=== PATIENT | female | born 1940 | race Caucasian/White ===

== ENCOUNTER 2018-01-24 14:27 | Outpatient (CLI) | payer MEDICARE, OTHER | END 2018-01-24 14:28 | disposition home or self-care (01) | LOC: BICMAMMO 14:27 | PROVIDERS: ATTEND Internal Medicine Hematology & Oncology | DX: Z12.31 Encounter for screening mammogram for malignant neoplasm of breast (principal); Z85.3 Personal history of malignant neoplasm of breast; Z80.3 Family history of malignant neoplasm of breast | CPT/HCPCS: 77063; 77067 ==

== ENCOUNTER 2018-06-20 09:25 | Outpatient (CLI) | payer MEDICARE, OTHER ==
--- NOTE | 2018-06-20 10:59 | BD ---
BONE DENSITOMETRY USING DEXA: Date: 06/20/18 HISTORY: Postmenopausal screening for osteoporosis. FINDINGS: Lumbar Spine: BMD (g/cm2) L1 0.823 T-Score: -1.5 Z-Score: 0.7 L2 1.243 T-Score: 2.0 Z-Score: 4.5 L3 1.304 T-Score: 2.0 Z-Score: 4.6 L4 1.151 T-Score: 0.8 Z-Score: 3.5 L1-L4 1.139 T-Score: 0.8 Z-Score: 3.4 Femoral Neck: 0.687 T-Score: -1.5 Z-Score: 0.7 Total Femur: 0.925 T-Score: -0.1 Z-Score: 1.8 There has been interval improvement of 0.7% in the bone mineral density of the lumbar spine and an im provement of 2.4% in the bone mineral density of the proximal femur since 11/10/10. The 10 year fracture risk for a major osteoporotic fracture is 11% and for a hip fracture is 2.3%. IMPRESSION: Osteopenia. POS: [facility]
== END 2018-06-20 09:26 | disposition home or self-care (01) ==
LOC: BICMAMMO 09:25
PROVIDERS: ATTEND Family Medicine
DX: Z13.820 Encounter for screening for osteoporosis (principal); Z78.0 Asymptomatic menopausal state; M85.88 Other specified disorders of bone density and structure, other site
CPT/HCPCS: 77080

== ENCOUNTER 2019-01-30 14:04 | Outpatient (CLI) | payer MEDICARE, OTHER ==
--- NOTE | 2019-01-30 15:51 | MMO ---
Bilateral MAMMO Bilat Screen DDI+LEXIS. CLINICAL HISTORY: Patient is 79 years old and is seen for screening. The patient has the following family history of breast cancer: aunt. The patient has a history of malignant (generic) in the right breast 2006. The patient has a history of right Lumpectomy in 2006 - malignant. VIEWS: The views performed were: bilateral craniocaudal with tomosynthesis and bilateral mediolateral oblique with tomosynthesis. FILMS COMPARED: The present examination has been compared to a prior imaging study performed at [facility] on 01/24/2018. MAMMOGRAM FINDINGS: There are scattered fibroglandular densities. There is a focal asymmetry seen in the middle inner region of the left breast. In the right breast, there are no suspicious masses, calcifications or areas of architectural distortion. IMPRESSION: FOCAL ASYMMETRY IN THE LEFT BREAST REQUIRES ADDITIONAL EVALUATION. RECOMMEND DIAGNOSTIC MAMMOGRAM. INDICATED, ULTRASOUND MAY ALSO BE PERFORMED. THE RESULTS OF THIS EXAM WERE SENT TO THE PATIENT. ACR BI-RADS Category 0 - Incomplete: Need additional imaging evaluation. [facility] will notify the patient of the need for additional imaging services. MAMMOGRAPHY NOTE: 1. A negative mammogram report should not delay a biopsy if a dominant of clinically suspicious mass is present. 2. Approximately 10% to 15% of breast cancers are not detected by mammography. 3. Adenosis and dense breasts may obscure an underlying neoplasm. Reported by: LA VILLALOBOS MD Electonically Signed: [id number]
== END 2019-01-30 14:05 | disposition home or self-care (01) ==
LOC: BICMAMMO 14:04
PROVIDERS: ATTEND Internal Medicine Hematology & Oncology
DX: Z12.31 Encounter for screening mammogram for malignant neoplasm of breast (principal); N64.89 Other specified disorders of breast; Z98.890 Other specified postprocedural states; Z85.3 Personal history of malignant neoplasm of breast; Z80.3 Family history of malignant neoplasm of breast
CPT/HCPCS: 77063; 77067

== ENCOUNTER 2019-02-04 12:37 | Outpatient (CLI) | payer MEDICARE, OTHER ==
--- NOTE | 2019-02-04 13:34 | MMO ---
Left Breast MAMMO Unilat Diag DDI LT+LEXIS. CLINICAL HISTORY: Patient is 79 years old and is seen for additional evaluation requested from prior study. The patient has the following family history of breast cancer: maternal aunt, malignant (generic). The patient has a history of malignant (generic) in the right breast 2006. The patient has a history of right Lumpectomy in 2006 - malignant. VIEWS: The views performed were: left craniocaudal spot compression with tomosynthesis; left mediolateral oblique spot compression with tomosynthesis; and left mediolateral with tomosynthesis. FILMS COMPARED: The present examination has been compared to prior imaging studies performed at [facility] on 01/24/2018, 01/30/2019 and 02/04/2019. MAMMOGRAM FINDINGS: There are scattered fibroglandular densities. There is a new irregular mass measuring 10 millimeters with spiculated margins seen in the left breast at 11 o'clock. IMPRESSION: NEW MASS IN THE LEFT BREAST IS SUSPICIOUS. AN ULTRASOUND-GUIDED BREAST BIOPSY IS RECOMMENDED. DR. MADDOX AT THE OFFICE OF THE PATIENT'S REFERRING PHYSICIAN, SOTERO MADDOX, WAS NOTIFIED OF THE EXAM RESULTS BY TELEPHONE ON 1:30 PM ON 02/04/2019.. THE PATIENT WAS INFORMED OF THE EXAM RESULTS. THE RESULTS OF THIS EXAM WERE SENT TO THE PATIENT. ACR BI-RADS Category 4 - Suspicious abnormality - biopsy should be considered MAMMOGRAPHY NOTE: 1. A negative mammogram report should not delay a biopsy if a dominant of clinically suspicious mass is present. 2. Approximately 10% to 15% of breast cancers are not detected by mammography. 3. Adenosis and dense breasts may obscure an underlying neoplasm. Reported by: BETHEL DICKEY MD Electonically Signed: [id number]
--- NOTE | 2019-02-04 13:51 | ULT ---
LEFT BREAST DIAGNOSTIC ULTRASOUND: 02/04/19 INDICATION: Spiculated mass left breast 11 o'clock position 6 cm from the nipple. FINDINGS: There is a spiculated hypoechoic mass with some posterior shadowing measuring 1 x 0.9 x 0.8 cm. Sonog raphic interrogation of the left axilla demonstrates no enlarged lymph nodes. IMPRESSION: BI-RADS 4: Suspicious Abnormality - Biopsy Should Be Considered Usually requires biopsy Recommend ultrasound guided core biopsy of the suspicious mass within the left breast 11 o'clock posi tion. The findings are called to Dr. Bauman at 1:30 p.m. on 02/04/19. Code CR POS: OFF
== END 2019-02-04 12:38 | disposition home or self-care (01) ==
LOC: BICMAMMO 12:37
PROVIDERS: ATTEND Internal Medicine Hematology & Oncology
DX: R92.2 Inconclusive mammogram (principal); N63.22 Unspecified lump in the left breast, upper inner quadrant; Z80.3 Family history of malignant neoplasm of breast; Z85.3 Personal history of malignant neoplasm of breast; Z90.11 Acquired absence of right breast and nipple
CPT/HCPCS: 76642; 77065; G0279

== ENCOUNTER → 2019-02-14 | Day surgery (SDC) | payer MEDICARE, OTHER ==
--- NOTE | 2019-02-14 13:48 | MMO ---
Left Breast MAMMO Unilat Diag DDI LT. CLINICAL HISTORY: Patient is 79 years old and is seen for diagnostic exam. The patient has the following family history of breast cancer: maternal aunt, malignant (generic). The patient has a history of malignant (generic) in the right breast 2006. The patient has a history of right Lumpectomy in 2006 - malignant. VIEWS: The views performed were: left craniocaudal and left mediolateral oblique. FILMS COMPARED: The present examination has been compared to prior imaging studies performed at [facility] on 01/24/2018, 01/30/2019 and 02/04/2019. This study has been interpreted with the assistance of computer-aided detection. MAMMOGRAM FINDINGS: There are scattered fibroglandular densities. There is a new biopsy clip seen in the left breast. The left breast clip is adjacent to the suspicious mass in the left breast 11:00 position. IMPRESSION: NEW BIOPSY CLIP IN THE LEFT BREAST IS SUSPICIOUS. THE RESULTS OF THIS EXAM WERE SENT TO THE PATIENT. ACR BI-RADS Category 4 - Suspicious abnormality - biopsy should be considered MAMMOGRAPHY NOTE: 1. A negative mammogram report should not delay a biopsy if a dominant of clinically suspicious mass is present. 2. Approximately 10% to 15% of breast cancers are not detected by mammography. 3. Adenosis and dense breasts may obscure an underlying neoplasm. Reported by: BETHEL DICKEY MD Electonically Signed: [id number]
--- NOTE | 2019-02-14 14:03 | ULT ---
ULTRASOUND GUIDED LEFT BREAST MASS BIOPSY: Date: 02/14/19 INDICATION: Suspicious mass within the left breast 11 o'clock position. TECHNIQUE: Informed consent was obtained. Preprocedural ultrasound was performed, localizing the suspicious left breast mass identified on diagnostic evaluation of 02/04/19. Site overlying this lesion was prepped and draped in the usual sterile fashion. Buffered 1% lidocaine was administered to overlying subcutan eous tissues. A small incision was made. Due to the size of the lesion and its positioning near the l eft chest wall, the biopsy clip was placed initially within the superior aspect of the lesion. Follow ing this, a 14 gauge core biopsy gun was guided down to the lesion. Four separate core samples were o btained of the lesion. Pressure was held at the biopsy site until hemostasis was obtained. Postproced ural left breast mammogram was performed to confirm clip deployment. This was confirmed. The patient tolerated the procedure without difficulty. IMPRESSION: BI-RADS Category 4 - Suspicious abnormality. Successful ultrasound guided core biopsy of the suspicio us left breast mass lesion seen in the 11 o'clock position. POS: OFF
== END ==
LOC: BICULT 12:31
PROVIDERS: ATTEND Internal Medicine Hematology & Oncology
PROC: 0HBU3ZX Excision of Left Breast, Percutaneous Approach, Diagnostic (ICD-10-PCS; principal; 2019-02-14)
DX: C50.212 Malignant neoplasm of upper-inner quadrant of left female breast (principal); Z80.3 Family history of malignant neoplasm of breast
CPT/HCPCS: 19083; 88305; 88341; 88342

== ENCOUNTER 2019-03-04 15:18 | Outpatient (CLI) | payer MEDICARE, OTHER ==
[2019-03-04 15:52] LABS: #Eosinphils 0.2 thou/uL (0.0-0.7); #Lymphocytes 1.3 thou/uL (1.20-3.40); #Monocytes 0.6 thou/uL (0.11-0.59); #Neutrophils 5.7 thou/uL (1.40-6.50); %Basophils 0.2 % (0.0-1.0); %Eosinophils 2.6 % (0.0-10.0); %Lymphocytes 16.7 % (21.0-51.0); %Monocytes 7.5 % (0.0-10.0); Mean Corpuscular HGB CONC 32.6 g/dL (32.0-36.0); Mean Corpuscular Hemoglobin 28.7 pg (27.0-31.0); Mean Corpuscular Volume 88.2 fL (78.0-98.0); Mean Platelet Volume 8.4 fL (7.4-10.4); Platelet Count 234 thou/uL (130-400); RBC Distribution Width 12.7 % (11.5-14.5); Red Blood Cell (RBC) Count 5.24 mill/uL (4.20-5.40); White Blood Cell (WBC) Count 7.8 thou/uL (4.8-10.8)
[2019-03-04 16:12] LABS: ALT (SGPT) 13 U/L (8-55); AST (SGOT) 16 U/L (5-34); Albumin 4.1 g/dL (3.4-4.8); Alkaline Phosphatase 87 U/L (40-110); Anion Gap 14 mmol/L (10-20); BUN (Urea Nitrogen) 11 mg/dL (9.8-20.1); Bilirubin, Total 0.3 mg/dL (0.2-1.2); Calc. Creatinine Clearance 0 mL/min (70-130); Calcium 10.1 mg/dL (7.8-10.44); Carbon Dioxide 25 mmol/L (23-31); Chloride 103 mmol/L (98-107); Estimated GFR-MDRD 71; Globulin 2.8 g/dL (2.4-3.5); Glucose 98 mg/dL (83-110); Potassium 4.1 mmol/L (3.5-5.1); Protein, Total 6.9 g/dL (6.0-8.3); Sodium 138 mmol/L (136-145)
--- NOTE | 2019-03-06 23:15 | EKG ---
Test Reason : Blood Pressure : / mmHG Vent. Rate : 072 BPM Atrial Rate : 072 BPM P-R Int : 174 ms QRS Dur : 168 ms QT Int : 440 ms P-R-T Axes : 033 -16 098 degrees QTc Int : 481 ms Normal sinus rhythm Left bundle branch block Abnormal ECG When compared with ECG of 10-APR-2016 16:56, No significant change was found Confirmed by Thalia ORR ([id number]) on 03/06/2019 11:14:41 PM Referred By: JEFFERY Confirmed By:Thalia ORR
== END 2019-03-04 15:19 | disposition home or self-care (01) ==
LOC: LABBT 15:18
PROVIDERS: ATTEND Specialist
DX: Z01.818 Encounter for other preprocedural examination (principal); C50.912 Malignant neoplasm of unspecified site of left female breast; Z17.0 Estrogen receptor positive status [ER+]
CPT/HCPCS: 71046; 80053; 85025; 93005; 93010

== ENCOUNTER 2019-03-07 06:45 | Day surgery (SDC) | payer MEDICARE, OTHER ==
--- NOTE | 2019-03-03 14:32 | HP ---
HISTORY: This is a 79-year-old female who is followed by Dr. Cloud and Dr. Bauman. She has been discovered to have a left breast cancer. I initially saw the patient in 2012, caring for the right breast cancer where she had partial mastectomy and radiation and sentinel node biopsy. On this occasion, she had diagnostic mammogram on February 14, 2019. BI-RADS 4 revealed a suspicious abnormality for left breast at 11 o'clock, underwent ultrasound-guided biopsy and pathology revealed grade 2, ER/NY positive, HER2 negative, invasive ductal carcinoma of the left breast. She denies palpating any abnormality. She is followed by Dr. Bauman in the past and has been seeing Dr. Bauman recently. She is followed by Dr. Levy, scheduled to see her again in May. She does not have any history of coronary artery disease. She is followed by Dr. Phillips regarding her asthma. Her accompanies her today. MEDICATIONS: 1. Breo Ellipta inhaler once a day. 2. Spiriva once a day. 3. Montelukast once a day. 4. Eye drops daily. 5. Mucinex. 6. Calcium citrate. 7. Vitamin D. 8. Aspirin 81 mg a day. 9. Iron 325 mg a day. 10. Synthroid. PAST MEDICAL HISTORY: Hypothyroidism, hyperlipidemia, history of right breast cancer followed by Dr. Bauman since 2007, lumpectomy, partial mastectomy and sentinel node biopsy and radiation therapy, chronic anemia, chronic asthma, history of gastritis, erosions, followed by Dr. Bills, arthritis, and obesity. ALLERGIES: ADVICOR, CRAMPS. VYTORIN, CRAMPS. NIACIN, CRAMPS. PAST SURGICAL HISTORY: Cardiac stress test 2011, normal colonoscopy 2008, normal tonsillectomy 1946, sentinel node biopsy, partial mastectomy as noted above in the past by Dr. Bills. Normal upper and lower endoscopy 2014. The patient has had 3 children. SOCIAL HISTORY: Tobacco, none. Alcohol, none. The patient is retired. PHYSICAL EXAMINATION: VITAL SIGNS: Weight 185 pounds, height 62 inches, 33 BMI. HEAD, EARS, EYES, NOSE AND THROAT: Unremarkable. LUNGS: Clear to auscultation. CARDIAC: Regular rate and rhythm without murmur or gallop. ABDOMEN: Soft and nontender. EXTREMITIES: Unremarkable. BREASTS: Right breast normal, status post partial mastectomy, scars well healed. Left breast with palpable abnormality. Axilla benign. ASSESSMENT AND PLAN: Malignant left breast cancer. She is hormone receptor positive. PLAN: Lymphoscintigraphy sentinel node biopsy, needle localization, partial mastectomy, left. She understands risks and benefits, and consents. She will follow up in my office in a few days postoperative for pathology report. Job ID: [id number]
[2019-03-04 16:02] VITALS: BMI 33.3
[2019-03-07] MEDS ORDERED: Ketorolac Tromethamine 30 MG/ML VIAL ONE (09:55)
[2019-03-07] MEDS ORDERED: Bupivacaine HCl 0.5%/Epinephrine 1:200,000/PF 30 ml Vial ONE (10:50)
[2019-03-07] MEDS ORDERED: Isosulfan Blue 50 MG/5 ML VIAL ONE (10:50)
[2019-03-07] MEDS ORDERED: Lidocaine 2% PF 5 ML VIAL ONE (10:50)
[2019-03-07] MEDS ORDERED: Fentanyl 100 MCG/2 ML VIAL ONE (11:01)
[2019-03-07] MEDS ORDERED: Bupivacaine/Epinephrine 0.25% 30 ML VIAL ONE (11:31)
--- NOTE | 2019-03-07 12:15 | MMO ---
EXAM: MAMMO Surgial Specimen PROVIDED CLINICAL HISTORY: Left breast invasive ductal carcinoma post recent ultrasound-guided biopsy. Wire localization and excisional biopsy were then performed. COMPARISON: Needle localization mammograms on 04/16/2019. FINDINGS/IMPRESSION: Single specimen mammogram is submitted. Localization wire is present within the specimen. The mass an d associated biopsy marker clip are present within the specimen. Findings were discussed with Dr. Gibbs in the operating room on 03/07/2019 at 1209 hours.
--- NOTE | 2019-03-07 12:21 | MMO ---
EXAM: MAMMO Brst Loc Dev Mammo Guide PROVIDED CLINICAL HISTORY: Left breast invasive ductal carcinoma. COMPARISON: Mammograms on 02/04/2019 02/14/2019. TECHNIQUE: After informed consent was obtained, the biopsy marker clip and focal asymmetry (mass) in the inner a nd upper left breast were localized in the CC projection. The area was meticulously prepped in usual fashion. Skin and subcutaneous tissues were infiltrated with buffered 1% lidocaine for local an esthesia. A 7.5 cm [place] localization needle and wire were advanced into the left breast. CC and lateral projections were performed. The needle was withdrawn approximately 1.5 cm, and the wire was t hen deployed with final image obtained. The patient tolerated the procedure well and without immediate complication. A dry sterile dressing w as placed. Patient was transported to nuclear medicine for lymphoscintigraphy prior to excisional biopsy. IMPRESSION: Technically successful needle and wire localization of a focal asymmetry (mass) and biopsy marker cli p in the upper inner left breast.
--- NOTE | 2019-03-07 12:25 | NM ---
EXAM: NM Lymphoscintigraphy left breast PROVIDED CLINICAL HISTORY: Left breast invasive ductal carcinoma COMPARISON: None FINDINGS: Approximately 430 uCi of technetium 99m filtered sulfur colloid was injected subcutaneously and intra dermally in a periareolar location left breast. Immediate anterior and lateral projections were obtained. Focal area of intense uptake of radiotracer is seen overlying the left axilla with a smalle r focus of increased uptake which appears to be within the left breast just posterior to injection site. The lymph node in the left axilla was marked. Patient was transported to surgery. IMPRESSION: Focus of intense uptake of radiotracer within the left axilla with an additional smaller focus of upt olivia in the left breast. Focus in the left axilla likely corresponding to sentinel lymph node.
--- NOTE | 2019-03-07 16:39 | OP ---
DATE OF PROCEDURE: 03/07/2019 PREOPERATIVE DIAGNOSIS: Left breast cancer, 11 o'clock radian, ER/MA positive, HER-2 negative, 2 cm by rare imaging criteria. POSTOPERATIVE DIAGNOSIS: 1. Left breast cancer, 11 o'clock radian, ER/MA positive, HER-2 negative, 2 cm by rare imaging criteria. 2. Negative touch prep sentinel node. PROCEDURES PERFORMED: 1. Lymphazurin blue injection, left breast. 2. Mammographically needle-localized partial mastectomy, left breast with margins marked. Note, posterior margins were to the pectoralis and a 2nd specimen was sent with new posterior margins extending to the pectoralis muscle due to palpating the tumor close to the posterior margin grossly. 3. [place] node biopsy, negative touch prep, left axilla. ANESTHESIA: General, local 0.5% Marcaine with epinephrine 30 mL with 0.25% Marcaine with epinephrine 30 mL mixed with 2% Xylocaine 10 mL, total volume mixture used. DESCRIPTION OF PROCEDURE: The patient was taken to the operating room, where after needle localization and imaging, left breast was prepared with ChloraPrep and draped in routine-fashion. After Lymphazurin blue infiltrated in the lateral areolar border after an alcohol prep, 1 mL was used. Breast massaged. Incision was made in the left axillary, carried down to skin, subcutaneous tissue, deep fascia, excising the deep axillary node that had Neoprobe recordings of over 500 and the excisional bed less than 50. The specimen with color blue was submitted to Pathology and touch prep was negative for metastasis. Hemostasis was gained with the cautery. Subcutaneous tissue was approximated with 3-0 Monocryl, skin with subdermal 4-0 Monocryl, and [place] glue applied after local anesthetic infiltrated about the incision in the skin and subcutaneous tissue and infiltrated in the biopsy cavity. An incision was made in the upper left breast, centered about the localizing wire, which entered the upper breast at about the 12 o'clock radian. Incision was skewed to the upper inner quadrant. Incision was carried down through the skin and subcutaneous tissue and flaps dissected free circumferentially to complete a partial mastectomy. The localizing wire en bloc resected with the partial mastectomy. I could palpate about a 2.25/2 cm tumor mass in the specimen and seemed to be close to the posterior margin. Thus, a new posterior margin excised from the pectoralis muscle. New margin marked with a Prolene suture. Margins of the resected partial mastectomy specimen clearly marked for a superior, inferior, medial, lateral and posterior margins. Hemostasis was gained with the cautery. Good hemostasis noted. Sponge and needle counts were correct. Subcutaneous tissue was approximated with 3-0 Monocryl, skin with subdermal 4-0 Monocryl, and [place] glue applied after a local anesthetic infiltrated in the biopsy cavity and the tissues surrounding. The patient tolerated the procedure well. An Malcolm wrap applied. Job ID: [id number]
== END 2019-03-07 14:35 | disposition home or self-care (01) ==
LOC: SDC 06:45
PROVIDERS: ATTEND Specialist
PROC: 0HBU0ZZ Excision of Left Breast, Open Approach (ICD-10-PCS; principal; 2019-03-07)
PROC: 07B60ZX Excision of Left Axillary Lymphatic, Open Approach, Diagnostic (ICD-10-PCS; 2019-03-07)
DX: C50.212 Malignant neoplasm of upper-inner quadrant of left female breast (principal); E03.9 Hypothyroidism, unspecified; E78.5 Hyperlipidemia, unspecified; J45.909 Unspecified asthma, uncomplicated; M19.90 Unspecified osteoarthritis, unspecified site; Z17.0 Estrogen receptor positive status [ER+]; Z79.82 Long term (current) use of aspirin; Z79.899 Other long term (current) drug therapy; Z88.8 Allergy status to other drugs, medicaments and biological substances; Z90.11 Acquired absence of right breast and nipple
CPT/HCPCS: 19281; 19301; 38525; 38900; 76098; 78195; A9541; Q9968; 88307; 88331; 88334; 88342; J0131; J0670; J0690; J1885; J2001; J3010

== ENCOUNTER 2019-10-16 13:10 | Outpatient (CLI) | payer MEDICARE, OTHER ==
--- NOTE | 2019-10-16 14:11 | BD ---
BONE DENSITOMETRY USING DEXA: HISTORY: Postmenopausal screening for osteoporosis. FINDINGS: Lumbar Spine: BMD (g/cm2) L1 0.916 T-Score: -0.7 Z-Score: 1.6 L2 1.200 T-Score: 1.6 Z-Score: 4.1 L3 1.249 T-Score: 1.5 Z-Score: 4.2 L4 1.230 T-Score: 1.2 Z-Score: 4.3 L1-L4 1.155 T-Score: 1.0 Z-Score: 3.6 Femoral Neck: 0.795 T-Score: -0.5 Z-Score: 1.8 Total Femur: 0.951 T-Score: 0.1 Z-Score: 2.1 There has been interval improvement of 1.4% in the BMD of the lumbar spine and an improvement of 2.8% in the BMD of the proximal femur since 06/20/2018. IMPRESSION: Normal bone mineral density. POS: C
== END 2019-10-16 13:11 | disposition home or self-care (01) ==
LOC: BICMAMMO 13:10
PROVIDERS: ATTEND Internal Medicine Hematology & Oncology
DX: Z13.820 Encounter for screening for osteoporosis (principal); C50.911 Malignant neoplasm of unspecified site of right female breast; D50.9 Iron deficiency anemia, unspecified; Z78.0 Asymptomatic menopausal state
CPT/HCPCS: 77080

== ENCOUNTER 2020-02-12 09:53 | Outpatient (CLI) | payer MEDICARE, OTHER ==
--- NOTE | 2020-02-12 10:39 | MMO ---
Bilateral MAMMO Bilat Diag DDI+LEXIS. CLINICAL HISTORY: Patient is 80 years old and is seen for diagnostic exam. The patient has the following family history of breast cancer: maternal aunt, malignant (generic). The patient has a history of Excisional biopsy procedure revealed invasive ductal left breast carcinoma in February, and malignant (generic) in the right breast 2006. The patient has a history of right Lumpectomy in 2006 - malignant. VIEWS: The views performed were: bilateral craniocaudal with tomosynthesis; bilateral mediolateral oblique with tomosynthesis; and bilateral mediolateral with tomosynthesis. FILMS COMPARED: The present examination has been compared to prior imaging studies performed at [facility] on 01/30/2019, 02/04/2019 and 02/14/2019. This study has been interpreted with the assistance of computer-aided detection. MAMMOGRAM FINDINGS: There are scattered fibroglandular densities. Finding 1: There are post operative changes seen in both breasts. Finding 2: There are stable benign appearing calcifications seen in both breasts. There are no suspicious masses, suspicious calcifications, or suspicious areas of architectural distortion. IMPRESSION: THERE IS NO MAMMOGRAPHIC EVIDENCE OF MALIGNANCY. A ROUTINE FOLLOW-UP MAMMOGRAM IN 1 YEAR IS RECOMMENDED. THE RESULTS OF THIS EXAM WERE SENT TO THE PATIENT. ACR BI-RADS Category 2 - Benign finding MAMMOGRAPHY NOTE: 1. A negative mammogram report should not delay a biopsy if a dominant of clinically suspicious mass is present. 2. Approximately 10% to 15% of breast cancers are not detected by mammography. 3. Adenosis and dense breasts may obscure an underlying neoplasm. Reported by: CHESTER SHEPHERD MD Electonically Signed: [id number]
== END 2020-02-12 09:54 | disposition home or self-care (01) ==
LOC: BICMAMMO 09:53
PROVIDERS: ATTEND Internal Medicine Hematology & Oncology
DX: C50.912 Malignant neoplasm of unspecified site of left female breast (principal); Z85.3 Personal history of malignant neoplasm of breast
CPT/HCPCS: 77066; G0279

== ENCOUNTER 2020-10-18 13:11 | Outpatient (CLI) | payer MEDICARE, OTHER | END 2020-10-18 13:12 | disposition home or self-care (01) | LOC: BICMAMMO 13:11 | PROVIDERS: ATTEND Internal Medicine Hematology & Oncology | DX: Z13.820 Encounter for screening for osteoporosis (principal); T38.6X5A Adverse effect of antigonadotrophins, antiestrogens, antiandrogens, not elsewhere classified, initial encounter; M85.89 Other specified disorders of bone density and structure, multiple sites | CPT/HCPCS: 77080 ==

== ENCOUNTER 2021-02-14 13:53 | Outpatient (CLI) | payer MEDICARE, OTHER | END 2021-02-14 13:54 | disposition home or self-care (01) | LOC: BICMAMMO 13:53 | PROVIDERS: ATTEND Internal Medicine Hematology & Oncology | DX: C50.919 Malignant neoplasm of unspecified site of unspecified female breast (principal) | CPT/HCPCS: 77066; G0279 ==

== ENCOUNTER 2021-05-05 18:13 | Emergency (ER) | payer MEDICARE, OTHER ==
[2021-05-05 18:52] LABS: #Eosinphils 0.2 thou/uL (0.0-0.7); #Lymphocytes 0.7 thou/uL (1.20-3.40); #Monocytes 0.7 thou/uL (0.11-0.59); #Neutrophils 5.6 thou/uL (1.40-6.50); %Basophils 0.2 % (0.0-1.0); %Eosinophils 2.3 % (0.0-10.0); %Lymphocytes 9.5 % (21.0-51.0); %Monocytes 9.9 % (0.0-10.0); %Neutrophils 78.2 % (42.0-75.0); Hemoglobin 15.7 g/dL (12.0-16.0); Mean Corpuscular HGB CONC 32.8 g/dL (32.0-36.0); Mean Corpuscular Hemoglobin 29.9 pg (27.0-31.0); Platelet Count 203 thou/uL (130-400); RBC Distribution Width 12.9 % (11.5-14.5); Red Blood Cell (RBC) Count 5.27 mill/uL (4.20-5.40); White Blood Cell (WBC) Count 7.2 thou/uL (4.8-10.8)
[2021-05-05 19:18] LABS: ALT (SGPT) 10 U/L (8-55); AST (SGOT) 13 U/L (5-34); Albumin 4.2 g/dL (3.4-4.8); Alkaline Phosphatase 92 U/L (40-110); Anion Gap 13 mmol/L (10-20); BUN (Urea Nitrogen) 8 mg/dL (9.8-20.1); Bilirubin, Total 0.6 mg/dL (0.2-1.2); Calc. Creatinine Clearance 0 mL/min (70-130); Calcium 10.3 mg/dL (7.8-10.44); Carbon Dioxide 28 mmol/L (23-31); Chloride 101 mmol/L (98-107); Globulin 3.3 g/dL (2.4-3.5); Glucose 113 mg/dL (83-110); Potassium 4.2 mmol/L (3.5-5.1); Protein, Total 7.5 g/dL (5.8-8.1); Sodium 138 mmol/L (136-145)
== END 2021-05-05 22:40 | disposition home or self-care (01) ==
LOC: ERS 18:13
DX: J44.1 Chronic obstructive pulmonary disease with (acute) exacerbation (principal); E03.9 Hypothyroidism, unspecified; E66.9 Obesity, unspecified; Z79.82 Long term (current) use of aspirin; Z79.899 Other long term (current) drug therapy
CPT/HCPCS: 36415; 71045; 80053; 85025; 93005

== ENCOUNTER 2022-02-22 13:13 | Outpatient (CLI) | payer MEDICARE, OTHER | END 2022-02-22 13:14 | disposition home or self-care (01) | LOC: BICMAMMO 13:13 | PROVIDERS: ATTEND Internal Medicine Hematology & Oncology | DX: Z08 Encounter for follow-up examination after completed treatment for malignant neoplasm (principal); M85.851 Other specified disorders of bone density and structure, right thigh; T38.6X5D Adverse effect of antigonadotrophins, antiestrogens, antiandrogens, not elsewhere classified, subsequent encounter; Z85.3 Personal history of malignant neoplasm of breast | CPT/HCPCS: 77066; 77080; G0279 ==

== ENCOUNTER 2022-06-01 11:37 | Outpatient (CLI) | payer MEDICARE, OTHER | END 2022-06-01 11:38 | disposition home or self-care (01) | LOC: BICRAD 11:37 | PROVIDERS: ATTEND Nurse Practitioner Family | DX: J18.9 Pneumonia, unspecified organism (principal) | CPT/HCPCS: 71046 ==

== ENCOUNTER 2023-03-08 14:41 | Outpatient (CLI) | payer MEDICARE, OTHER | END 2023-03-08 14:42 | disposition home or self-care (01) | LOC: BICMAMMO 14:41 | PROVIDERS: ATTEND Nurse Practitioner Family | DX: Z08 Encounter for follow-up examination after completed treatment for malignant neoplasm (principal); Z85.3 Personal history of malignant neoplasm of breast | CPT/HCPCS: 77066; G0279 ==